=== PATIENT | male | born 1985 | race African-American/Black ===

== ENCOUNTER 2016-12-23 20:12 | Emergency (ER) | payer OTHER | END 2016-12-23 20:47 | disposition home or self-care (01) | LOC: CFTX 20:12 | DX: S13.9XXA Sprain of joints and ligaments of unspecified parts of neck, initial encounter (principal); S16.1XXA Strain of muscle, fascia and tendon at neck level, initial encounter; V43.52XA Car driver injured in collision with other type car in traffic accident, initial encounter | CPT/HCPCS: 99283 ==